=== PATIENT | male | born 1980 | race Caucasian/White ===

== ENCOUNTER 2016-04-20 01:28 | Emergency (ER) | payer MEDICAID ==
[~2016-04-20] VITALS: Ht 177.8 cm; Wt 68.0 kg
[~2016-04-20 01:28] MED LIST: VISTARIL50 MG PO
[2016-04-20 01:37] LABS: URINE BILIRUBIN - DIPSTICK NEGATIVE (NEG); URINE BLOOD NEGATIVE (NEG)
[2016-04-20 01:45] LABS: AMPHETAMINES/METAMPHETAMINES NEGATIVE ng/mL (<1000)
[2016-04-20 02:00] VITALS: BP 167/94
== END 2016-04-20 02:00 | disposition left against medical advice (07) ==
LOC: ER 01:28
PROVIDERS: Emergency Medicine
DX: Z53.29 Procedure and treatment not carried out because of patient's decision for other reasons (principal)